=== PATIENT | female | born 1935 | race African-American/Black ===

== ENCOUNTER 2021-04-02 13:38 | Inpatient (IN) | payer OTHER ==
[~2021-04-02] VITALS: Ht 165.1 cm; Wt 60.8 kg
[2021-04-02 16:20] LABS: BASOPHILS % 0.5 % (0.0-2.0); EOSINOPHILS % 1.7 % (0.0-5.0); HEMATOCRIT. 36.3 % (36.0-48.0); HEMOGLOBIN. 12.1 g/dL (12.0-16.0); MEAN PLATELET VOLUME 8.2 fl (7.4-10.4); MONOCYTES % 6.7 % (2.0-8.0); NEUTROPHILS % 74.1 % (40.0-76.0); PLATELET 275 x1000/uL (130-400); RED BLOOD CELL COUNT 4.48 mill/uL (4.2-5.4); RED CELL DISTRIBUTION WIDTH 14.3 % (11.6-14.6)
[2021-04-02 16:25] LABS: CHLORIDE 110 mEq/L (98-107)
[2021-04-02 16:27] LABS: INR 1.1; PROTHROMBIN TIME 11.8 sec (9.6-11.0)
[2021-04-02 16:30] LABS: ETHANOL BLOOD < 10 mg/dL
[2021-04-02 16:34] LABS: CREATINE KINASE 90 IU/L (26-192)
[2021-04-02] MEDS ORDERED: DEXT 5%/0.9% NACL 500 ML IV ONE (17:45)
[2021-04-02] MEDS ORDERED: HALOPERIDOL LACTATE 5MG/ML VIAL IM STA (21:11)
[2021-04-02] MEDS ORDERED: HALOPERIDOL LACTATE 5MG/ML VIAL IM ONE (21:15)
[2021-04-03 01:30] VITALS: BP 136/113
[2021-04-03 04:00] VITALS: BP 136/113
[2021-04-03] MEDS ORDERED: ONDANSETRON HCL 4MG/2ML INJ IV PRN (05:45)
[2021-04-03 08:00] VITALS: BP 130/82
[2021-04-03 08:27] LABS: BASOPHILS % 0.5 % (0.0-2.0); EOSINOPHILS % 5.9 % (0.0-5.0); HEMATOCRIT. 36.5 % (36.0-48.0); HEMOGLOBIN. 11.9 g/dL (12.0-16.0); LYMPHOCYTES % 19.3 % (20.0-50.0); MEAN CORPUSCULAR HEMOGLOBIN 26.5 pg (28.0-32.0); MEAN CORPUSCULAR VOLUME 81.2 fL (81.0-99.0); MEAN PLATELET VOLUME 8.4 fl (7.4-10.4); MONOCYTES % 9.1 % (2.0-8.0); NEUTROPHILS % 65.2 % (40.0-76.0); PLATELET 250 x1000/uL (130-400); RED BLOOD CELL COUNT 4.49 mill/uL (4.2-5.4); RED CELL DISTRIBUTION WIDTH 14.6 % (11.6-14.6)
[2021-04-03] MEDS: ASPIRIN 81MG TABLET PO SCH (11:33)
[2021-04-03] MEDS: AMLODIPINE 10MG TABLET PO SCH (11:33)
[2021-04-03 12:00] VITALS: BP 149/89
[2021-04-03 16:00] VITALS: BP 154/87
[2021-04-04] VITALS: BP 156/110
[2021-04-04 00:15] VITALS: BP 175/112
[2021-04-04] MEDS: LORAZEPAM 2MG/ML CPJ IM PRN ×4 (00:41→23:55)
[2021-04-04 01:00] VITALS: BP 124/76
[2021-04-04 04:00] VITALS: BP 120/71
[2021-04-04 08:00] VITALS: BP 118/84
[2021-04-04] MEDS: ASPIRIN 81MG TABLET PO SCH (10:09)
[2021-04-04] MEDS: AMLODIPINE 10MG TABLET PO SCH (10:10)
[2021-04-04 20:00] VITALS: BP 129/74
[2021-04-05] VITALS: BP 102/57
[2021-04-05 04:00] VITALS: BP 112/68
[2021-04-05 08:00] VITALS: BP 97/50
[2021-04-05] MEDS: AMLODIPINE 10MG TABLET PO SCH (09:00)
[2021-04-05] MEDS: ASPIRIN 81MG TABLET PO SCH (09:17)
[2021-04-05 12:00] VITALS: BP 111/62
[2021-04-05] MEDS: LORAZEPAM 2MG/ML CPJ IM PRN (14:19)
[2021-04-05 16:00] VITALS: BP 119/72
[2021-04-05 20:00] VITALS: BP 156/85
[2021-04-06] VITALS: BP 171/76
[2021-04-06] MEDS: CLONIDINE 0.1MG TABLET PO PRN (00:34)
[2021-04-06 04:00] VITALS: BP 141/90
[2021-04-06 08:00] VITALS: BP 165/109
[2021-04-06] MEDS: ASPIRIN 81MG TABLET PO SCH (09:37)
[2021-04-06] MEDS: AMLODIPINE 10MG TABLET PO SCH (09:38)
[2021-04-06 12:00] VITALS: BP 130/98
[2021-04-06] MEDS: LORAZEPAM 2MG/ML CPJ IM PRN ×2 (14:45→19:58)
[2021-04-06 16:00] VITALS: BP 126/100
[2021-04-06] MEDS: LOSARTAN POTASSIUM 50 MG TABLET PO SCH (18:04)
[2021-04-06 20:00] VITALS: BP 131/74
[2021-04-07 01:12] VITALS: BP 149/96
[2021-04-07 05:19] VITALS: BP 147/87
[2021-04-07 08:00] VITALS: BP 138/69
[2021-04-07] MEDS: ASPIRIN 81MG TABLET PO SCH (10:10)
[2021-04-07] MEDS: AMLODIPINE 10MG TABLET PO SCH (10:10)
[2021-04-07] MEDS: LOSARTAN POTASSIUM 50 MG TABLET PO SCH (10:10)
[2021-04-07] MEDS: LORAZEPAM 2MG/ML CPJ IM PRN ×2 (10:49→21:23)
[2021-04-07 20:00] VITALS: BP 133/84
[2021-04-08] VITALS: BP 121/72
[2021-04-08 04:00] VITALS: BP 137/87
[2021-04-08 06:47] LABS: CHLORIDE 111 mEq/L (98-107)
[2021-04-08 06:50] LABS: BASOPHILS % 0.9 % (0.0-2.0); EOSINOPHILS % 8.2 % (0.0-5.0); HEMATOCRIT. 38.7 % (36.0-48.0); HEMOGLOBIN. 12.6 g/dL (12.0-16.0); LYMPHOCYTES % 23.9 % (20.0-50.0); MEAN CORPUSCULAR HEMOGLOBIN 26.9 pg (28.0-32.0); MEAN CORPUSCULAR VOLUME 82.4 fL (81.0-99.0); MEAN PLATELET VOLUME 9.2 fl (7.4-10.4); MONOCYTES % 8.9 % (2.0-8.0); NEUTROPHILS % 58.1 % (40.0-76.0); PLATELET 277 x1000/uL (130-400); RED BLOOD CELL COUNT 4.69 mill/uL (4.2-5.4); RED CELL DISTRIBUTION WIDTH 14.5 % (11.6-14.6)
[2021-04-08 08:00] VITALS: BP 143/95
[2021-04-08] MEDS: AMLODIPINE 10MG TABLET PO SCH (09:07)
[2021-04-08] MEDS: ASPIRIN 81MG TABLET PO SCH (09:07)
[2021-04-08] MEDS: LOSARTAN POTASSIUM 50 MG TABLET PO SCH (09:07)
[2021-04-08] MEDS: LORAZEPAM 2MG/ML CPJ IM PRN ×2 (09:08→15:19)
[2021-04-08 16:00] VITALS: BP 138/93
[2021-04-08 20:42] VITALS: BP 119/79
[2021-04-09] VITALS: BP 145/80
[2021-04-09 04:00] VITALS: BP 140/82
[2021-04-09 08:00] VITALS: BP 122/74
[2021-04-09] MEDS: ASPIRIN 81MG TABLET PO SCH (09:40)
[2021-04-09] MEDS: LOSARTAN POTASSIUM 50 MG TABLET PO SCH (09:40)
[2021-04-09] MEDS: AMLODIPINE 10MG TABLET PO SCH (09:41)
[2021-04-09] MEDS ORDERED: RISPERIDONE 0.5MG TABLET PO SCH (09:45)
[2021-04-09 12:00] VITALS: BP 138/70
[2021-04-09] MEDS: RISPERIDONE 0.5MG TABLET PO SCH (17:25)
[2021-04-09 20:36] VITALS: BP 137/84
[2021-04-09] MEDS: LORAZEPAM 2MG/ML CPJ IM PRN (23:56)
[2021-04-10] VITALS: BP_SYST 129; BP_SYST 145; BP_DIAS 73; BP_DIAS 82
[2021-04-10 02:53] VITALS: BP 129/82
[2021-04-10 05:33] VITALS: BP 145/81
[2021-04-10 08:00] VITALS: BP 162/82
[2021-04-10] MEDS: LOSARTAN POTASSIUM 50 MG TABLET PO SCH (09:15)
[2021-04-10] MEDS: AMLODIPINE 10MG TABLET PO SCH (09:15)
[2021-04-10] MEDS: ASPIRIN 81MG TABLET PO SCH (09:15)
[2021-04-10] MEDS: RISPERIDONE 0.5MG TABLET PO SCH ×2 (09:15→17:22)
[2021-04-10] MEDS: LORAZEPAM 2MG/ML CPJ IM PRN ×2 (09:57→19:43)
[2021-04-10 20:00] VITALS: BP 139/76
[2021-04-11] MEDS: LORAZEPAM 2MG/ML CPJ IM PRN ×3 (03:57→15:50)
[2021-04-11 08:00] VITALS: BP 136/80
[2021-04-11] MEDS: AMLODIPINE 10MG TABLET PO SCH ×2 (09:00→09:53)
[2021-04-11] MEDS: LOSARTAN POTASSIUM 50 MG TABLET PO SCH ×2 (09:00→09:52)
[2021-04-11] MEDS: RISPERIDONE 0.5MG TABLET PO SCH ×3 (09:00→17:00)
[2021-04-11] MEDS: ASPIRIN 81MG TABLET PO SCH ×2 (09:00→09:52)
[2021-04-11 12:00] VITALS: BP 176/102
[2021-04-11 16:00] VITALS: BP 138/80
[2021-04-11 20:00] VITALS: BP 155/90
[2021-04-12] VITALS: BP 140/90
[2021-04-12] MEDS: LORAZEPAM 2MG/ML CPJ IM PRN ×3 (05:35→22:39)
[2021-04-12 08:00] VITALS: BP 157/99
[2021-04-12] MEDS: RISPERIDONE 0.5MG TABLET PO SCH ×2 (11:06→17:00)
[2021-04-12] MEDS: LOSARTAN POTASSIUM 50 MG TABLET PO SCH (11:06)
[2021-04-12] MEDS: ASPIRIN 81MG TABLET PO SCH (11:06)
[2021-04-12] MEDS: AMLODIPINE 10MG TABLET PO SCH (11:07)
[2021-04-12 12:00] VITALS: BP 139/103
[2021-04-12 16:00] VITALS: BP 141/78
[2021-04-13] VITALS: BP 115/68
[2021-04-13 04:00] VITALS: BP 118/76
[2021-04-13 08:00] VITALS: BP 119/74
[2021-04-13] MEDS: RISPERIDONE 0.5MG TABLET PO SCH ×2 (09:27→17:03)
[2021-04-13] MEDS: ASPIRIN 81MG TABLET PO SCH (09:27)
[2021-04-13] MEDS: LOSARTAN POTASSIUM 50 MG TABLET PO SCH (09:27)
[2021-04-13] MEDS: AMLODIPINE 10MG TABLET PO SCH (09:27)
[2021-04-13 12:00] VITALS: BP 128/69
[2021-04-13 16:00] VITALS: BP 123/74
[2021-04-13 20:00] VITALS: BP 154/76
[2021-04-13] MEDS: LORAZEPAM 2MG/ML CPJ IM PRN (23:58)
[2021-04-14] VITALS: BP 124/73
[2021-04-14 08:00] VITALS: BP 117/78
[2021-04-14] MEDS: RISPERIDONE 0.5MG TABLET PO SCH ×3 (09:00→17:37)
[2021-04-14] MEDS: LOSARTAN POTASSIUM 50 MG TABLET PO SCH ×2 (09:00→09:58)
[2021-04-14] MEDS: AMLODIPINE 10MG TABLET PO SCH (09:58)
[2021-04-14] MEDS: ASPIRIN 81MG TABLET PO SCH (09:58)
[2021-04-14 12:00] VITALS: BP 150/86
[2021-04-14] MEDS: LORAZEPAM 2MG/ML CPJ IM PRN ×2 (15:39→22:01)
[2021-04-14 16:00] VITALS: BP 137/86
[2021-04-14] MEDS: CLONIDINE 0.1MG TABLET PO PRN (17:36)
[2021-04-14 20:00] VITALS: BP 164/83
[2021-04-15] VITALS: BP 140/89
[2021-04-15 08:00] VITALS: BP 144/111
[2021-04-15] MEDS: ASPIRIN 81MG TABLET PO SCH (11:05)
[2021-04-15] MEDS: AMLODIPINE 10MG TABLET PO SCH (11:05)
[2021-04-15] MEDS: LOSARTAN POTASSIUM 50 MG TABLET PO SCH (11:05)
[2021-04-15] MEDS: RISPERIDONE 0.5MG TABLET PO SCH ×2 (11:06→19:39)
[2021-04-15] MEDS: CLONIDINE 0.1MG TABLET PO PRN (11:07)
[2021-04-15 12:00] VITALS: BP 114/60
[2021-04-15] MEDS: LORAZEPAM 2MG/ML CPJ IM PRN ×2 (12:27→17:42)
[2021-04-15 20:00] VITALS: BP 109/54
[2021-04-15 21:23] VITALS: BP 109/54
[2021-04-16] VITALS: BP 125/68
[2021-04-16 04:00] VITALS: BP 144/75
[2021-04-16] MEDS: ASPIRIN 81MG TABLET PO SCH (08:44)
[2021-04-16] MEDS: RISPERIDONE 0.5MG TABLET PO SCH ×3 (08:44→17:00)
[2021-04-16] MEDS: LOSARTAN POTASSIUM 50 MG TABLET PO SCH (08:48)
[2021-04-16] MEDS: AMLODIPINE 10MG TABLET PO SCH (08:48)
[2021-04-16] MEDS: LORAZEPAM 2MG/ML CPJ IM PRN ×3 (10:08→21:30)
[2021-04-16 20:00] VITALS: BP 124/70
[2021-04-17] VITALS: BP 119/67
[2021-04-17 04:00] VITALS: BP 134/70
[2021-04-17 08:00] VITALS: BP 141/80
[2021-04-17] MEDS: RISPERIDONE 0.5MG TABLET PO SCH ×2 (09:00→18:12)
[2021-04-17] MEDS: AMLODIPINE 10MG TABLET PO SCH (09:56)
[2021-04-17] MEDS: LOSARTAN POTASSIUM 50 MG TABLET PO SCH (09:56)
[2021-04-17] MEDS: ASPIRIN 81MG TABLET PO SCH (09:57)
[2021-04-17] MEDS: LORAZEPAM 2MG/ML CPJ IM PRN ×2 (09:58→15:19)
[2021-04-17 12:00] VITALS: BP 153/100
[2021-04-17 16:00] VITALS: BP 125/70
[2021-04-17 20:00] VITALS: BP 114/79
[2021-04-18] VITALS: BP 132/83
[2021-04-18 04:00] VITALS: BP 112/72
[2021-04-18 08:00] VITALS: BP 126/88
[2021-04-18] MEDS: AMLODIPINE 10MG TABLET PO SCH (09:00)
[2021-04-18] MEDS: LOSARTAN POTASSIUM 50 MG TABLET PO SCH (11:45)
[2021-04-18] MEDS: ASPIRIN 81MG TABLET PO SCH (11:45)
[2021-04-18] MEDS: RISPERIDONE 0.5MG TABLET PO SCH ×2 (11:46→18:26)
[2021-04-18 12:00] VITALS: BP 123/74
[2021-04-18] MEDS: LORAZEPAM 2MG/ML CPJ IM PRN ×2 (12:40→21:01)
[2021-04-18 16:00] VITALS: BP 148/82
[2021-04-18 20:00] VITALS: BP 128/65
[2021-04-18] MEDS ORDERED: LORAZEPAM 2MG/ML CPJ IV PRN (20:45)
[2021-04-19] VITALS: BP 133/66
[2021-04-19 04:00] VITALS: BP 148/102
[2021-04-19 08:00] VITALS: BP 162/98
[2021-04-19] MEDS: AMLODIPINE 10MG TABLET PO SCH (09:25)
[2021-04-19] MEDS: LOSARTAN POTASSIUM 50 MG TABLET PO SCH (09:25)
[2021-04-19] MEDS: ASPIRIN 81MG TABLET PO SCH (09:25)
[2021-04-19] MEDS: RISPERIDONE 0.5MG TABLET PO SCH ×2 (09:25→18:07)
[2021-04-19] MEDS: LORAZEPAM 2MG/ML CPJ IM PRN ×3 (10:03→19:24)
[2021-04-19] MEDS ORDERED: LORAZEPAM 2MG/ML CPJ IM PRN (11:45)
[2021-04-19 20:00] VITALS: BP 135/88
[2021-04-19 23:17] LABS: VITAMIN B12 SERUM 342 pg/mL (211-911)
[2021-04-20] VITALS: BP 141/76
[2021-04-20] MEDS: LORAZEPAM 2MG/ML CPJ IM PRN ×3 (02:53→20:26)
[2021-04-20 04:00] VITALS: BP 139/80
[2021-04-20 08:00] VITALS: BP 144/86
[2021-04-20] MEDS: RISPERIDONE 0.5MG TABLET PO SCH ×2 (09:00→17:00)
[2021-04-20 12:00] VITALS: BP 142/77
[2021-04-20 16:00] VITALS: BP 136/73
[2021-04-20] MEDS: ASPIRIN 81MG TABLET PO SCH (16:16)
[2021-04-20] MEDS: AMLODIPINE 10MG TABLET PO SCH (16:16)
[2021-04-20] MEDS: LOSARTAN POTASSIUM 50 MG TABLET PO SCH (16:16)
[2021-04-20 20:00] VITALS: BP 136/71
[2021-04-21] VITALS: BP 132/82
[2021-04-21] MEDS: LORAZEPAM 2MG/ML CPJ IM PRN ×4 (00:36→21:41)
[2021-04-21 04:00] VITALS: BP 127/82
[2021-04-21 08:00] VITALS: BP 128/85
[2021-04-21] MEDS: LOSARTAN POTASSIUM 50 MG TABLET PO SCH (09:00)
[2021-04-21] MEDS: RISPERIDONE 0.5MG TABLET PO SCH ×2 (09:00→17:00)
[2021-04-21] MEDS: AMLODIPINE 10MG TABLET PO SCH (09:00)
[2021-04-21] MEDS: ASPIRIN 81MG TABLET PO SCH (09:00)
[2021-04-21 12:19] VITALS: BP 133/86
[2021-04-21 16:00] VITALS: BP 139/80
[2021-04-21 20:00] VITALS: BP 130/88
[2021-04-21] MEDS: MEMANTINE HCL 5MG TABLET PO SCH (20:00)
[2021-04-22] VITALS: BP 125/85
[2021-04-22] MEDS: LORAZEPAM 2MG/ML CPJ IM PRN ×4 (01:52→21:22)
[2021-04-22 04:00] VITALS: BP 131/95
[2021-04-22 08:00] VITALS: BP 119/77
[2021-04-22] MEDS: MEMANTINE HCL 5MG TABLET PO SCH ×2 (09:00→10:10)
[2021-04-22] MEDS: ASPIRIN 81MG TABLET PO SCH ×2 (09:00→10:09)
[2021-04-22] MEDS: LOSARTAN POTASSIUM 50 MG TABLET PO SCH ×2 (09:00→10:09)
[2021-04-22] MEDS: RISPERIDONE 0.5MG TABLET PO SCH ×3 (09:00→17:14)
[2021-04-22] MEDS: AMLODIPINE 10MG TABLET PO SCH ×2 (09:00→10:09)
[2021-04-22 12:00] VITALS: BP 120/69
[2021-04-22 16:00] VITALS: BP 141/69
[2021-04-22 20:00] VITALS: BP 159/87
[2021-04-23] VITALS: BP 119/67
[2021-04-23 04:00] VITALS: BP 145/75
[2021-04-23 08:52] VITALS: BP 150/83
[2021-04-23] MEDS: ASPIRIN 81MG TABLET PO SCH (10:02)
[2021-04-23] MEDS: LOSARTAN POTASSIUM 50 MG TABLET PO SCH (10:03)
[2021-04-23] MEDS: MEMANTINE HCL 5MG TABLET PO SCH ×2 (10:03→19:37)
[2021-04-23] MEDS: RISPERIDONE 0.5MG TABLET PO SCH ×2 (10:03→17:16)
[2021-04-23] MEDS: AMLODIPINE 10MG TABLET PO SCH (10:14)
[2021-04-23 11:53] VITALS: BP 154/97
[2021-04-23 15:58] VITALS: BP 129/69
[2021-04-23] MEDS: LORAZEPAM 2MG/ML CPJ IM PRN (19:38)
[2021-04-23 20:00] VITALS: BP 136/83
[2021-04-24] VITALS: BP 130/61
[2021-04-24 04:00] VITALS: BP 121/75
[2021-04-24 08:00] VITALS: BP 134/99
[2021-04-24 12:00] VITALS: BP 136/81
[2021-04-24] MEDS: ASPIRIN 81MG TABLET PO SCH (14:26)
[2021-04-24] MEDS: LOSARTAN POTASSIUM 50 MG TABLET PO SCH (14:26)
[2021-04-24] MEDS: MEMANTINE HCL 5MG TABLET PO SCH ×2 (14:26→17:00)
[2021-04-24] MEDS: RISPERIDONE 0.5MG TABLET PO SCH (14:27)
[2021-04-24] MEDS: AMLODIPINE 10MG TABLET PO SCH (14:27)
[2021-04-24] MEDS: LORAZEPAM 2MG/ML CPJ IM PRN ×2 (15:26→20:18)
[2021-04-24 16:00] VITALS: BP 153/83
[2021-04-24 20:00] VITALS: BP 145/86
[2021-04-25] VITALS: BP 131/93
[2021-04-25] MEDS: LORAZEPAM 2MG/ML CPJ IM PRN ×3 (00:09→22:39)
[2021-04-25 04:00] VITALS: BP 128/81
[2021-04-25 08:00] VITALS: BP 87/50
[2021-04-25] MEDS: LOSARTAN POTASSIUM 50 MG TABLET PO SCH (09:00)
[2021-04-25] MEDS: ASPIRIN 81MG TABLET PO SCH (09:00)
[2021-04-25] MEDS: RISPERIDONE 0.5MG TABLET PO SCH ×2 (09:00→17:00)
[2021-04-25] MEDS: AMLODIPINE 10MG TABLET PO SCH (09:00)
[2021-04-25] MEDS: MEMANTINE HCL 5MG TABLET PO SCH ×2 (09:00→17:00)
[2021-04-25 12:00] VITALS: BP 127/66
[2021-04-25 16:00] VITALS: BP 89/50
[2021-04-25 20:00] VITALS: BP 146/80
[2021-04-26] VITALS: BP 139/77
[2021-04-26 04:00] VITALS: BP 144/83
[2021-04-26] MEDS: LORAZEPAM 2MG/ML CPJ IM PRN (05:21)
[2021-04-26 08:00] VITALS: BP 86/56
[2021-04-26] MEDS: AMLODIPINE 10MG TABLET PO SCH (09:00)
[2021-04-26] MEDS: RISPERIDONE 0.5MG TABLET PO SCH (10:42)
[2021-04-26] MEDS: LOSARTAN POTASSIUM 50 MG TABLET PO SCH (10:42)
[2021-04-26] MEDS: ASPIRIN 81MG TABLET PO SCH (10:42)
[2021-04-26] MEDS: MEMANTINE HCL 5MG TABLET PO SCH (10:42)
[2021-04-26] MEDS ORDERED: LOSA50TA3 PO (11:33)
[2021-04-26] MEDS ORDERED: MEMA5TAB7 PO (11:33)
[2021-04-26] MEDS ORDERED: AMLO10TA80 PO (11:33)
[2021-04-26] MEDS ORDERED: RISP05 PO (11:33)
[2021-04-26 12:00] VITALS: BP 145/87
[2021-04-26 15:15] VITALS: BP 145/87
== END 2021-04-26 15:04 | DRG 70 ==
LOC: ER 13:38 → EDBD 17:44 → MICUSO 17:44 → 6EST 04-03 00:21
PROVIDERS: ADMIT Internal Medicine; ATTEND Internal Medicine
PROC: 4A10X4Z Monitoring of Central Nervous Electrical Activity, External Approach (ICD-10-PCS; principal; 2021-04-20)
DX: G93.40 Encephalopathy, unspecified (principal); N17.0 Acute kidney failure with tubular necrosis; E86.0 Dehydration; F03.90 Unspecified dementia, unspecified severity, without behavioral disturbance, psychotic disturbance, mood disturbance, and anxiety; E87.8 Other disorders of electrolyte and fluid balance, not elsewhere classified; I10 Essential (primary) hypertension; Z20.822 Contact with and (suspected) exposure to COVID-19
CPT/HCPCS: 36415; 71045; 73522; 80048; 80053; 80320; 82140; 82550; 82607; 84443; 84484; 85025; 87426; 95816; 99285; J1630; J2060; J7042; G0480